=== PATIENT | male | born 1970 | race Caucasian/White ===

== ENCOUNTER 2016-10-26 07:47 | Emergency (ER) | payer SELFPAY ==
--- NOTE | 2016-10-26 10:13 | DIAGNOSTIC IMAGING REPORT ---
PROCEDURE: XR CHEST 1 VIEW INDICATION: SOB, COUGH, AND WHEEZING TECHNIQUE: Single view chest. 08:12 hours COMPARISON: None FINDINGS: Normal cardiomediastinal contour and central vessels. There is a vague asymmetric density in the medial left upper lobe adjacent to a mildly hypertrophic left first rib end. Minor scattered peribronchial thickening bilaterally. No dense consolidations, effusion, or pneumothorax. Intact osseous structures. IMPRESSION: 1. Questionable medial left upper lobe density. Further evaluation with PA and lateral chest x-ray is recommended. 2. Minor scattered peribronchial thickening may be bronchitis or reactive airways disease. 3. Findings called to the emergency room.
--- NOTE | 2016-10-26 10:42 | DIAGNOSTIC IMAGING REPORT ---
PROCEDURE: XR CHEST 2 VIEW INDICATION: COUGH TECHNIQUE: Two views. COMPARISON: Single view chest performed earlier the same day. FINDINGS: The cardiomediastinal contour and central vasculature is normal. Density in the medial left upper lobe is no longer present, likely technique change. There is persistent minor retrocardiac and bilateral perihilar peribronchial thickening. No dense consolidation, effusion, or pneumothorax. Intact osseous structures. IMPRESSION: 1. Minor peribronchial thickening suggests bronchitis. 2. No evidence of medial left upper lobe pathology with change in technique. 3. Discussed with Dr. Kahn in the emergency room.
--- NOTE | 2016-10-26 10:54 | ED CLINICAL REPORT ---
Clinical Report - Physicians/Mid Levels [facility] [address] [place] [address] 10/26/2016 7:52 Patient: GUALBERTO WATSON JR Time Seen: 0751. Arrived- By ambulance. Historian- patient and EMS personnel. CPT: ER phys charges level 4 (#022100). HISTORY OF PRESENT ILLNESS Chief Complaint: WHEEZING. This started past 2 - 3 weeks and is still present and worsening. It was abrupt in onset and has been constant and waxing/waning but is not gone now. The dyspnea is described as severe. He has had dyspnea at rest. The patient has had a cough. No chest pain or discomfort. See nurses notes for current asthma threapy. Does not take asthma medication. (states he was taking an abx that started with a "D". states he started feeling a little better so stopped. reports getting worse over the past few days. reports no known hx of COPD or wheezing.). Similar symptoms previously: Once. Recent medical care: The patient was seen recently in a clinic. REVIEW OF SYSTEMS No fever, palpitations, nausea, abdominal pain or diarrhea. No difficulty with urination, skin rash or vomiting. Denies current . All systems otherwise negative, except as recorded above. PAST HISTORY See nurses notes. Additional Surgeries: no known surgeries. Medications: Albuterol Sulfate Inhalation 2 puffs, PRN. Doxycycline Monohydrate Oral (Capsule 100 mg) 1 capsule, 2 x daily (this was a friend's antibiotic and he was taking it intermittently). PredniSONE Oral (Weaning course). Allergies: No Known Drug Allergy. SOCIAL HISTORY Smoker- current status unknown. 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 No alcohol use. No recent travel. Is a local resident. ADDITIONAL NOTES The nursing notes have been reviewed. PHYSICAL EXAM Vital Signs: 10/26/2016 07:50 BP: 126/94. HR: 76. RR: 24. O2 saturation: 100%. Temp: 98.5 F. Pain level now: 0/10. Oxygen saturation normal. Appearance: Alert. Patient in mild distress. (non-toxic). Eyes: Pupils equal, round and reactive to light. Eyes normal inspection. ENT: Ears normal. Nose normal. Pharynx normal. Uvula midline. Neck: Normal inspection. Neck supple. CVS: Normal heart rate and rhythm. Heart sounds normal. Pulses normal. Respiratory: No respiratory distress. Respiratory distress. Moderate bilateral wheezes diffusely. Breath sounds normal. No stridor, rales or rhonchi. Abdomen: Soft and nontender. No organomegaly. Skin: Skin warm and dry. Normal skin color. No rash. Normal skin turgor. Extremities: Extremities exhibit normal ROM. No lower extremity edema. Neuro: Oriented X 3. No motor deficit. No sensory deficit. LABS, X-RAYS, AND EKG EKG: Normal sinus rhythm. Normal P waves. Normal [place]. Normal QRS complex. Normal axis. Normal ST and T waves. The study has been interpreted contemporaneously. The study has been independently viewed by me. The EKG appears to be a good tracing. Laboratory Tests: CBC w Diff: (SHANELL: 10/26/2016 08:20) ( [facility] 10/26/2016 08:39) Final results Test Result Flag Units (Reference) WHITE BLOOD COUNT 7.4 K/uL (4.5-11.5) RED BLOOD COUNT 5.06 M/uL (4.50-5.90) HEMOGLOBIN 14.9 gm/dL (13.5-17.5) HEMATOCRIT 44.1 % (41.0-53.0) MEAN CELL VOLUME 87 fL (80-100) MEAN CORPUSCULAR HGB 30 pg (26-34) MEAN CORPUSCULAR HGB CONC 34 g/dL (31-37) RED CELL DISTRIBUTION WIDTH 13.5 % (11.6-14.8) PLATELET COUNT 280 K/uL (150-400) NEUTROPHIL % 55.0 % (50-75) LYMPH % 24.6 L % (25-40) MONO % 5.1 % (3-14) EOSINOPHIL % 14.9 H % (0-4) BASOPHIL % 0.4 % (0-2) BMP: (SHANELL: 10/26/2016 08:20) ( [facility] 10/26/2016 08:53) Final results Test Result Flag Units (Reference) GLUCOSE 103 mg/dL (70-110) BUN 16 mg/dL (7-18) CREATININE 0.9 mg/dL (0.6-1.3) Estimated GFR >60 mL/min Estimated GFR- >60 mL/min Note: Persistent reduction over 3 months in eGFR<60 mL/min/1.73 m2 defines CKD. Patients with eGFR values>=60 mL/min/1.73 m2 may also have CKD if evidence ofpersistent proteinuria. Additional information may be foundat www.kidney.org. SODIUM 141 mmol/L (136-145) POTASSIUM 4.2 mmol/L (3.5-5.1) CHLORIDE 104 mmol/L (98-107) CARBON DIOXIDE 29 mmol/L (21-32) CALCIUM 8.5 mg/dL (8.5-10.1) . PROGRESS AND PROCEDURES Course of Care: 10:52 10/26/16. Wheezing resolved. Has no PCP. Patient is stable. The patient's symptoms are now gone. Physical exam findings are improved. Patient/family counseled. Disposition: Discharged. Condition: stable and improved. CLINICAL IMPRESSION Acute bronchospasm Acute bacterial bronchitis. INSTRUCTIONS No strenuous activity. Drink plenty of fluids. Do not smoke. Your Current Medications: CONTINUE TAKING THE FOLLOWING MEDICATIONS: Albuterol Sulfate Inhalation : 2 puffs PRN. Doxycycline Monohydrate Oral : Capsule 100 mg, 1 capsule 2 x daily, this was a friend's antibiotic and he was taking it intermittently. PredniSONE Oral : Weaning course. Prescription Medications: Albuterol HFA oral inhaler: inhale 2 puffs via spacer every 4 hours as needed for wheezing or difficulty breathing, until symptoms improve. Dispense one (1) unit. No refill. Prednisone 20 mg: take 3 orally every day for 5 days. Dispense fifteen (15). No refills. Doxycycline 100 mg: Take 1 capsule orally every 12 hours for 10 days. No refill. Understanding of the discharge instructions verbalized by patient. Follow-up with: [facility], , , [address], [facility], [id number] Follow up in one week. Call for an appointment. (Electronically signed by Delbert Kahn MD 10/26/2016 13:52)
--- NOTE | 2016-10-26 10:54 | ED CLINICAL REPORT ---
Clinical Report - Physicians/Mid Levels [facility] [address] [place] [address] 10/26/2016 7:52 Patient: GUALBERTO WATSON JR Time Seen: 0751. Arrived- By ambulance. Historian- patient and EMS personnel. CPT: ER phys charges level 4 (#[id number]). HISTORY OF PRESENT ILLNESS Chief Complaint: WHEEZING. This started past 2 - 3 weeks and is still present and worsening. It was abrupt in onset and has been constant and waxing/waning but is not gone now. The dyspnea is described as severe. He has had dyspnea at rest. The patient has had a cough. No chest pain or discomfort. See nurses notes for current asthma threapy. Does not take asthma medication. (states he was taking an abx that started with a "D". states he started feeling a little better so stopped. reports getting worse over the past few days. reports no known hx of COPD or wheezing.). Similar symptoms previously: Once. Recent medical care: The patient was seen recently in a clinic. REVIEW OF SYSTEMS No fever, palpitations, nausea, abdominal pain or diarrhea. No difficulty with urination, skin rash or vomiting. Denies current . All systems otherwise negative, except as recorded above. PAST HISTORY See nurses notes. Additional Surgeries: no known surgeries. Medications: Albuterol Sulfate Inhalation 2 puffs, PRN. Doxycycline Monohydrate Oral (Capsule 100 mg) 1 capsule, 2 x daily (this was a friend's antibiotic and he was taking it intermittently). PredniSONE Oral (Weaning course). Allergies: No Known Drug Allergy. SOCIAL HISTORY Smoker- current status unknown. 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 No alcohol use. No recent travel. Is a local resident. ADDITIONAL NOTES The nursing notes have been reviewed. PHYSICAL EXAM Vital Signs: 10/26/2016 07:50 BP: 126/94. HR: 76. RR: 24. O2 saturation: 100%. Temp: 98.5 F. Pain level now: 0/10. Oxygen saturation normal. Appearance: Alert. Patient in mild distress. (non-toxic). Eyes: Pupils equal, round and reactive to light. Eyes normal inspection. ENT: Ears normal. Nose normal. Pharynx normal. Uvula midline. Neck: Normal inspection. Neck supple. CVS: Normal heart rate and rhythm. Heart sounds normal. Pulses normal. Respiratory: No respiratory distress. Respiratory distress. Moderate bilateral wheezes diffusely. Breath sounds normal. No stridor, rales or rhonchi. Abdomen: Soft and nontender. No organomegaly. Skin: Skin warm and dry. Normal skin color. No rash. Normal skin turgor. Extremities: Extremities exhibit normal ROM. No lower extremity edema. Neuro: Oriented X 3. No motor deficit. No sensory deficit. LABS, X-RAYS, AND EKG EKG: Normal sinus rhythm. Normal P waves. Normal [place]. Normal QRS complex. Normal axis. Normal ST and T waves. The study has been interpreted contemporaneously. The study has been independently viewed by me. The EKG appears to be a good tracing. Laboratory Tests: CBC w Diff: (SHANELL: 10/26/2016 08:20) ( [facility] 10/26/2016 08:39) Final results Test Result Flag Units (Reference) WHITE BLOOD COUNT 7.4 K/uL (4.5-11.5) RED BLOOD COUNT 5.06 M/uL (4.50-5.90) HEMOGLOBIN 14.9 gm/dL (13.5-17.5) HEMATOCRIT 44.1 % (41.0-53.0) MEAN CELL VOLUME 87 fL (80-100) MEAN CORPUSCULAR HGB 30 pg (26-34) MEAN CORPUSCULAR HGB CONC 34 g/dL (31-37) RED CELL DISTRIBUTION WIDTH 13.5 % (11.6-14.8) PLATELET COUNT 280 K/uL (150-400) NEUTROPHIL % 55.0 % (50-75) LYMPH % 24.6 L % (25-40) MONO % 5.1 % (3-14) EOSINOPHIL % 14.9 H % (0-4) BASOPHIL % 0.4 % (0-2) BMP: (SHANELL: 10/26/2016 08:20) ( [facility] 10/26/2016 08:53) Final results Test Result Flag Units (Reference) GLUCOSE 103 mg/dL (70-110) BUN 16 mg/dL (7-18) CREATININE 0.9 mg/dL (0.6-1.3) Estimated GFR >60 mL/min Estimated GFR- >60 mL/min Note: Persistent reduction over 3 months in eGFR<60 mL/min/1.73 m2 defines CKD. Patients with eGFR values>=60 mL/min/1.73 m2 may also have CKD if evidence ofpersistent proteinuria. Additional information may be foundat www.kidney.org. SODIUM 141 mmol/L (136-145) POTASSIUM 4.2 mmol/L (3.5-5.1) CHLORIDE 104 mmol/L (98-107) CARBON DIOXIDE 29 mmol/L (21-32) CALCIUM 8.5 mg/dL (8.5-10.1) . PROGRESS AND PROCEDURES Course of Care: 10:52 10/26/16. Wheezing resolved. Has no PCP. Patient is stable. The patient's symptoms are now gone. Physical exam findings are improved. Patient/family counseled. Disposition: Discharged. Condition: stable and improved. CLINICAL IMPRESSION Acute bronchospasm Acute bacterial bronchitis. INSTRUCTIONS No strenuous activity. Drink plenty of fluids. Do not smoke. Your Current Medications: CONTINUE TAKING THE FOLLOWING MEDICATIONS: Albuterol Sulfate Inhalation : 2 puffs PRN. Doxycycline Monohydrate Oral : Capsule 100 mg, 1 capsule 2 x daily, this was a friend's antibiotic and he was taking it intermittently. PredniSONE Oral : Weaning course. Prescription Medications: Albuterol HFA oral inhaler: inhale 2 puffs via spacer every 4 hours as needed for wheezing or difficulty breathing, until symptoms improve. Dispense one (1) unit. No refill. Prednisone 20 mg: take 3 orally every day for 5 days. Dispense fifteen (15). No refills. Doxycycline 100 mg: Take 1 capsule orally every 12 hours for 10 days. No refill. Understanding of the discharge instructions verbalized by patient. Follow-up with: [facility], , , [address], [facility], [id number] Follow up in one week. Call for an appointment. (Electronically signed by Delbert Kahn MD 10/26/2016 13:52)
--- NOTE | 2016-10-26 10:54 | ED NURSING NOTES ---
Clinical Report - Nurses [facility] [address] [place] [address] 10/26/2016 7:52 Patient: GUALBERTO WATSON JR TRIAGE Triage time 07:45 Oct 26 2016. Acuity: LEVEL 3. Chief Complaint: SHORTNESS OF BREATH, DIFFICULTY BREATHING, "ASTHMA ATTACK" and WHEEZING. Alert. JANICE COMA SCORE: [place] Coma Scale: 15- eyes open spontaneously (4); best verbal response- oriented x 4 (5); best motor response- obeys commands (6). --08:07 Cody Silva R.N. 07:50 10/26/16. BP: 126/94. HR: 76. RR: 24. O2 saturation: 100% on room air. Temp: 98.5 F. Pain level now: 0/10. --08:07 Cody Silva R.N. Weight: 89.8 kg measured. Height/Length: 68 inches Per Patient. BMI: 30.1. --07:57 Cody Silva R.N. Medications Albuterol Sulfate Inhalation 2 puffs, PRN. Doxycycline Monohydrate Oral (Capsule 100 mg) 1 capsule, 2 x daily (this was a friend's antibiotic and he was taking it intermittently). PredniSONE Oral (Weaning course). --08:03 Cody Silva R.N. Medication/allergy information source: the patient. --08:07 Cody Silva R.N. Allergies No Known Drug Allergy. --08:05 Cody Silva R.N. History Arrived by EMS. Historian: patient. Unaccompanied. Primary physician ([facility]). ( Respiratory Distress/Asthma Exacerbation. Found outside [facility] this morning when they opened breathing hard and in apparent resp distress. Medics called.). Onset. (about 2 days ago). He has had a cough and wheezing. 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 PAST MEDICAL HX: Asthma. Immunizations: status is unknown. SURGERY HX: No history of previous surgery. SOCIAL HX: Never smoker. No alcohol use or drug use. ABUSE ASSESSMENT: No report of abuse. FALL RISK ASSESSMENT: Fall risk assessment completed. No fall risk identified. NUTRITIONAL RISK ASSESSMENT: The nutritional risk assessment revealed no deficiencies. FUNCTIONAL ASSESSMENT: Functional assessment: no impairments noted. LEARNING NEEDS ASSESSMENT: The learning needs assessment revealed no barriers. SKIN INTEGRITY ASSESSMENT: Skin integrity risk assessment completed. No skin integrity risk identified. --08:07 Cody Silva R.N. ADDITIONAL SURGERIES: no known surgeries. Interventions ID band on patient. To treatment room. --08:07 Cody Silva R.N. PHYSICAL ASSESSMENT To room via stretcher. GENERAL / NEURO / PSYCH: Alert. Oriented X 4. HEENT: Mucous membranes are pink. RESPIRATORY: Mild respiratory distress. Expiratory bilateral wheezes diffusely. CVS: Normal sinus rhythm noted. Capillary refill less than 2 seconds. GI / : Abdomen soft and nontender. SKIN: Skin is warm and dry. Normal skin turgor. --08:09 Cody Silva R.N. NURSING PROGRESS NOTES technology teacher, pulse oximeter and NIBP monitor placed on patient; senior vice president- Lead II and V1; monitor alarms on. Patient gowned. Patient identifiers checked. Call light placed in reach. Side rails up x 2. Bed placed in lowest position. Brakes of bed on. Patient ready for evaluation- chart flagged and ED physician notified. --08:10 Cody Silva R.N. 08:11 10/26/2016 Site #1 started prior to arrival by EMS via IV in the left antecubital space with an 18g angiocath, with aseptic technique and good blood return. Blood drawn: rainbow set. Labeled in the presence of the patient and sent to the lab (Field start IV by EMS, blood specimen drawn from IV site by RN in ED.). --08:26 Cody Silva R.N. 08:11 10/26/2016 SOLU-MEDROL (MethylPREDNISolone Sodium Succ) IVP 125 mg given over 2 minute(s) via site #1. Allergies verified and confirmed 5 rights. IV patency established. IV site checked: no pain, redness, or swelling. IV flushed thoroughly pre- and post-medication administration. IVP given by RN. --08:26 Cody Silva R.N. EKG time: (0801). EKG was performed by a tech and shown to the ED physician. ( performed by Zack Jacobs, per MD PRIEST). --08:42 Seth Moralez, ALICIA Tech1 08:59 10/26/2016 Albuterol Neb TX Nebulizer 3 unit dose given. Given by the respiratory therapist. Allergies verified and confirmed 5 rights. Cayetano Weinstein --08:59 Cayetano Weinstein 09:22 10/26/16. BP: 110/72. HR: 62. RR: 18. O2 saturation: 93% on room air. Pain level now: 0/10. --09:27 Cody Silva R.N. 09:19 10/26/2016 Duoneb (Ipratropium-Albuterol) Neb TX Nebulizer 1 unit dose given. Given by the respiratory therapist. Allergies verified and confirmed 5 rights. --09:35 Cody Silva R.N. 10:15 10/26/16. BP: 112/73. HR: 65. RR: 18. O2 saturation: 94% on room air. Pain level now: 0/10. --11:34 Cody Silva R.N. 11:00 10/26/2016 Site #1 removed upon discharge. Catheter intact. Manual pressure, bandaid and bandage applied. --11:37 Cody Silva R.N. DISPOSITION / DISCHARGE 11:00 10/26/16. BP: 119/76. HR: 68 (regular and normal rate). RR: 20. O2 saturation: 95% on room air. Temp: 98.4 F (oral). Pain level now: 0/10. --11:27 Cody Silva R.N. Departure time: 1105. --11:27 Cody Silva R.N. 11:05. Condition at departure: improved. No learning barriers present. Discharge instructions provided and reviewed with the patient. Reviewed medication(s) dosing and course information (prescription given to pt). Reviewed referral to family practice for followup. Patient verbalized understanding. Written instructions provided in Upper Sorbian. The patient was discharged by the physician. He was discharged home and unaccompanied at time of discharge. He left the Emergency Department ambulatory and via bus. --11:29 Cody Silva R.N. Locked/Released at 10/26/2016 11:40 by Cody Silva R.N.
--- NOTE | 2016-10-26 10:54 | ED ORDER SUMMARY ---
..... Patient: GUALBERTO WATSON JR OrderSheet [facility] VisitID: [id number] [address] [place] [address] 46y, M Registration Date/Time: 10/26/2016 ORDER SHEET Weight: 89.8 kg (measured) Allergies: No Known Drug Allergy GENERAL ORDERS: Chest 1V Urgent (07:56 10/26/2016 Navya Ocampo) (Ack 7:58 IJurca ER Tech1) (8:10 omanelli R.N.) Manager Food (Continuous) (Respiratory Distress) (07:56 10/26/2016 Navya Ocampo) (Ack 7:58 IJurca ER Tech1) (8:10 Nevin R.N.) CBC w Diff Urgent (07:56 10/26/2016 Navya Ocampo) (Ack 7:58 NAHIDurca ER Tech1) (8:24 Nevin R.N.) BMP Urgent (07:56 10/26/2016 Navya Ocampo) (Ack 7:58 IJurca ER Tech1) (8:24 Nevin R.N.) Pulse oximeter (07:56 10/26/2016 Navya Ocampo) (Ack 7:58 IJurca ER Tech1) (8:10 omanelli R.N.) Chest 2V Urgent (10:13 10/26/2016 Ashlee SALAS) (Ack 10:16 IJurca ER Tech1) (10:29 Nevin R.N.) MEDICATION ORDERS: DuoNeb Neb Tx 1 unit dose (NOW) (07:56 10/26/2016 Navya Ocampo) (9:35 Nevin R.N.) Albuterol Neb Tx 3 unit doses (NOW) (08:50 10/26/2016 Navya Ocampo) (8:59 JZiglar) IV FLUIDS: Solu-MEDROL IV 125 mg (NOW) (07:57 10/26/2016 Navya Ocampo) (8:26 Nevin R.N.) ORDER SHEET NOTES: [Electronically signed by Cody Silva R.N. (11:40 10/26/2016)] [Electronically signed by Delbert Kahn MD (13:52 10/26/2016)] [Electronically locked/signed by Cody Silva R.N. (11:40 10/26/2016)]
--- NOTE | 2016-10-26 10:54 | ED ORDER SUMMARY ---
..... Patient: GUALBERTO WATSON JR OrderSheet [facility] VisitID: [id number] [address] [place] [address] 46y, M Registration Date/Time: 10/26/2016 ORDER SHEET Weight: 89.8 kg (measured) Allergies: No Known Drug Allergy GENERAL ORDERS: Chest 1V Urgent (07:56 10/26/2016 Navya Ocampo) (Ack 7:58 IJurca ER Tech1) (8:10 omanelli R.N.) Homicide Investigator (Continuous) (Respiratory Distress) (07:56 10/26/2016 Navya Ocampo) (Ack 7:58 IJurca ER Tech1) (8:10 Nevin R.N.) CBC w Diff Urgent (07:56 10/26/2016 Navya Ocampo) (Ack 7:58 NAHIDurca ER Tech1) (8:24 Nevin R.N.) BMP Urgent (07:56 10/26/2016 Navya Ocampo) (Ack 7:58 IJurca ER Tech1) (8:24 Nevin R.N.) Pulse oximeter (07:56 10/26/2016 Navya Ocampo) (Ack 7:58 IJurca ER Tech1) (8:10 omanelli R.N.) Chest 2V Urgent (10:13 10/26/2016 Ashlee SALAS) (Ack 10:16 IJurca ER Tech1) (10:29 Nevin R.N.) MEDICATION ORDERS: DuoNeb Neb Tx 1 unit dose (NOW) (07:56 10/26/2016 Navya Ocampo) (9:35 Nevin R.N.) Albuterol Neb Tx 3 unit doses (NOW) (08:50 10/26/2016 Navya Ocampo) (8:59 JZiglar) IV FLUIDS: Solu-MEDROL IV 125 mg (NOW) (07:57 10/26/2016 Navya Ocampo) (8:26 Nevin R.N.) ORDER SHEET NOTES: [Electronically signed by Cody Silva R.N. (11:40 10/26/2016)] [Electronically signed by Delbert Kahn MD (13:52 10/26/2016)] [Electronically locked/signed by Cody Silva R.N. (11:40 10/26/2016)]
--- NOTE | 2016-10-26 10:54 | ED NURSING NOTES ---
Clinical Report - [facility] [address] [place] [address] 10/26/2016 7:52 Patient: GUALBERTO WATSON JR TRIAGE Triage time 07:45 Oct 26 2016. Acuity: LEVEL 3. Chief Complaint: SHORTNESS OF BREATH, DIFFICULTY BREATHING, "ASTHMA ATTACK" and WHEEZING. Alert. JANICE COMA SCORE: [place] Coma Scale: 15- eyes open spontaneously (4); best verbal response- oriented x 4 (5); best motor response- obeys commands (6). --08:07 Cody Silva R.N. 07:50 10/26/16. BP: 126/94. HR: 76. RR: 24. O2 saturation: 100% on room air. Temp: 98.5 F. Pain level now: 0/10. --08:07 Cody Silva R.N. Weight: 89.8 kg measured. Height/Length: 68 inches Per Patient. BMI: 30.1. --07:57 Cody Silva R.N. Medications Albuterol Sulfate Inhalation 2 puffs, PRN. Doxycycline Monohydrate Oral (Capsule 100 mg) 1 capsule, 2 x daily (this was a friend's antibiotic and he was taking it intermittently). PredniSONE Oral (Weaning course). --08:03 Cody Silva R.N. Medication/allergy information source: the patient. --08:07 Cody Silva R.N. Allergies No Known Drug Allergy. --08:05 Cody Silva R.N. History Arrived by EMS. Historian: patient. Unaccompanied. Primary physician ([facility]). ( Respiratory Distress/Asthma Exacerbation. Found outside [facility] this morning when they opened breathing hard and in apparent resp distress. Medics called.). Onset. (about 2 days ago). He has had a cough and wheezing. 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 PAST MEDICAL HX: Asthma. Immunizations: status is unknown. SURGERY HX: No history of previous surgery. SOCIAL HX: Never smoker. No alcohol use or drug use. ABUSE ASSESSMENT: No report of abuse. FALL RISK ASSESSMENT: Fall risk assessment completed. No fall risk identified. NUTRITIONAL RISK ASSESSMENT: The nutritional risk assessment revealed no deficiencies. FUNCTIONAL ASSESSMENT: Functional assessment: no impairments noted. LEARNING NEEDS ASSESSMENT: The learning needs assessment revealed no barriers. SKIN INTEGRITY ASSESSMENT: Skin integrity risk assessment completed. No skin integrity risk identified. --08:07 Cody Silva R.N. ADDITIONAL SURGERIES: no known surgeries. Interventions ID band on patient. To treatment room. --08:07 Cody Silva R.N. PHYSICAL ASSESSMENT To room via stretcher. GENERAL / NEURO / PSYCH: Alert. Oriented X 4. HEENT: Mucous membranes are pink. RESPIRATORY: Mild respiratory distress. Expiratory bilateral wheezes diffusely. CVS: Normal sinus rhythm noted. Capillary refill less than 2 seconds. GI / : Abdomen soft and nontender. SKIN: Skin is warm and dry. Normal skin turgor. --08:09 Cody Silva R.N. NURSING PROGRESS NOTES cardiac monitor technician, pulse oximeter and NIBP monitor placed on patient; cardiac rehabilitation program director- Lead II and V1; monitor alarms on. Patient gowned. Patient identifiers checked. Call light placed in reach. Side rails up x 2. Bed placed in lowest position. Brakes of bed on. Patient ready for evaluation- chart flagged and ED physician notified. --08:10 Cody Silva R.N. 08:11 10/26/2016 Site #1 started prior to arrival by EMS via IV in the left antecubital space with an 18g angiocath, with aseptic technique and good blood return. Blood drawn: rainbow set. Labeled in the presence of the patient and sent to the lab (Field start IV by EMS, blood specimen drawn from IV site by RN in ED.). --08:26 Cody Silva R.N. 08:11 10/26/2016 SOLU-MEDROL (MethylPREDNISolone Sodium Succ) IVP 125 mg given over 2 minute(s) via site #1. Allergies verified and confirmed 5 rights. IV patency established. IV site checked: no pain, redness, or swelling. IV flushed thoroughly pre- and post-medication administration. IVP given by RN. --08:26 Cody Silva R.N. EKG time: (0801). EKG was performed by a tech and shown to the ED physician. ( performed by Zack Jacobs, per MD PRIEST). --08:42 Seth Moralez, ALICIA Tech1 08:59 10/26/2016 Albuterol Neb TX Nebulizer 3 unit dose given. Given by the respiratory therapist. Allergies verified and confirmed 5 rights. Cayetano Weinstein --08:59 Cayetano Weinstein 09:22 10/26/16. BP: 110/72. HR: 62. RR: 18. O2 saturation: 93% on room air. Pain level now: 0/10. --09:27 Cody Sivla R.N. 09:19 10/26/2016 Duoneb (Ipratropium-Albuterol) Neb TX Nebulizer 1 unit dose given. Given by the respiratory therapist. Allergies verified and confirmed 5 rights. --09:35 Cody Silva R.N. 10:15 10/26/16. BP: 112/73. HR: 65. RR: 18. O2 saturation: 94% on room air. Pain level now: 0/10. --11:34 Cody Silva R.N. 11:00 10/26/2016 Site #1 removed upon discharge. Catheter intact. Manual pressure, bandaid and bandage applied. --11:37 Cody Silva R.N. DISPOSITION / DISCHARGE 11:00 10/26/16. BP: 119/76. HR: 68 (regular and normal rate). RR: 20. O2 saturation: 95% on room air. Temp: 98.4 F (oral). Pain level now: 0/10. --11:27 oCdy Silva R.N. Departure time: 1105. --11:27 Cody Silva R.N. 11:05. Condition at departure: improved. No learning barriers present. Discharge instructions provided and reviewed with the patient. Reviewed medication(s) dosing and course information (prescription given to pt). Reviewed referral to family practice for followup. Patient verbalized understanding. Written instructions provided in Icelandic. The patient was discharged by the physician. He was discharged home and unaccompanied at time of discharge. He left the Emergency Department ambulatory and via bus. --11:29 Cody Silva R.N. Locked/Released at 10/26/2016 11:40 by Cody Silva R.N.
--- NOTE | 2016-10-26 13:52 | ED MED RECONCILIATION SUMMARY ---
Patient: GUALBERTO WATSON JR Medication Reconciliation Report [facility] VisitID: [id number] [address] [place] [address] 46y, M Registration Date/Time: 10/26/2016 Weight: 89.8 kg Height/Length: 68 in. BMI: 30.1 ALLERGIES: No Known Drug Allergy The patient's Home Medications are listed below: CONTINUE TAKING THE FOLLOWING MEDICATIONS: Albuterol Sulfate Inhalation 2 puffs, PRN Doxycycline Monohydrate Oral (100 mg) 1 capsule, 2 x daily, this was a friend's antibiotic and he was taking it intermittently PredniSONE Oral, Weaning course The source(s) of the original Home Medication information: patient The following Medications were given to the patient in the Emergency Department: SOLU-MEDROL [IVP] IVP 125 mg, administered: 10/26/2016 8:11:00 AM Albuterol [Neb Tx] Neb TX 3 unit dose, administered: 10/26/2016 8:59:00 AM Duoneb [Neb Tx] Neb TX 1 unit dose, administered: 10/26/2016 9:19:00 AM The following Medications were prescribed to the patient: Albuterol HFA oral inhaler: inhale 2 puffs via spacer every 4 hours as needed for wheezing or difficulty breathing, until symptoms improve. Dispense one (1) unit. No refill. -- Delbert Kahn MD Prednisone 20 mg: take 3 orally every day for 5 days. Dispense fifteen (15). No refills. -- Delbert Kahn MD Doxycycline 100 mg: Take 1 capsule orally every 12 hours for 10 days. No refill. -- Delbert Kahn MD
--- NOTE | 2016-10-26 13:52 | ED MED RECONCILIATION SUMMARY ---
Patient: GUALBERTO WATSON JR Medication Reconciliation Report [facility] VisitID: [id number] [address] [place] [address] 46y, M Registration Date/Time: 10/26/2016 Weight: 89.8 kg Height/Length: 68 in. BMI: 30.1 ALLERGIES: No Known Drug Allergy The patient's Home Medications are listed below: CONTINUE TAKING THE FOLLOWING MEDICATIONS: Albuterol Sulfate Inhalation 2 puffs, PRN Doxycycline Monohydrate Oral (100 mg) 1 capsule, 2 x daily, this was a friend's antibiotic and he was taking it intermittently PredniSONE Oral, Weaning course The source(s) of the original Home Medication information: patient The following Medications were given to the patient in the Emergency Department: SOLU-MEDROL [IVP] IVP 125 mg, administered: 10/26/2016 8:11:00 AM Albuterol [Neb Tx] Neb TX 3 unit dose, administered: 10/26/2016 8:59:00 AM Duoneb [Neb Tx] Neb TX 1 unit dose, administered: 10/26/2016 9:19:00 AM The following Medications were prescribed to the patient: Albuterol HFA oral inhaler: inhale 2 puffs via spacer every 4 hours as needed for wheezing or difficulty breathing, until symptoms improve. Dispense one (1) unit. No refill. -- Delbert Kahn MD Prednisone 20 mg: take 3 orally every day for 5 days. Dispense fifteen (15). No refills. -- Delbert Kahn MD Doxycycline 100 mg: Take 1 capsule orally every 12 hours for 10 days. No refill. -- Delbert Kahn MD
--- NOTE | 2016-10-26 13:52 | ED DISCHARGE INSTRUCTIONS ---
Patient: GUALBERTO WATSON JR General Instructions [facility] VisitID: [id number] [address] [place] [place] [address] 46y, M Registration Date/Time: 10/26/2016 Acute bronchospasm Acute bacterial bronchitis. INSTRUCTIONS No strenuous activity. Drink plenty of fluids. Do not smoke. Your Current Medications: CONTINUE TAKING THE FOLLOWING MEDICATIONS: Albuterol Sulfate Inhalation : 2 puffs PRN. Doxycycline Monohydrate Oral : Capsule 100 mg, 1 capsule 2 x daily, this was a friend's antibiotic and he was taking it intermittently. PredniSONE Oral : Weaning course. Prescription Medications: Albuterol HFA oral inhaler: inhale 2 puffs via spacer every 4 hours as needed for wheezing or difficulty breathing, until symptoms improve. Dispense one (1) unit. No refill. Prednisone 20 mg: take 3 orally every day for 5 days. Dispense fifteen (15). No refills. Doxycycline 100 mg: Take 1 capsule orally every 12 hours for 10 days. No refill. Understanding of the discharge instructions verbalized by patient. Follow-up with: [facility], , , [address], [facility], [id number] Follow up in one week. Call for an appointment. ADDITIONAL INFORMATION Bronchospasm (Adult) Bronchospasm occurs when the airways (bronchial tubes) go into spasm and contract. This makes it hard to breathe and causes wheezing (a high-pitched whistling sound). Bronchospasm can also cause frequent coughing without the wheezing sound. Bronchospasm is due to irritation, inflammation or allergic reaction of the airways. People with asthma get bronchospasm. However, not everyone with bronchospasm has asthma. Being exposed to harmful fumes, a recent case of bronchitis, or a flare-up of chronic emphysema (COPD) may cause the airways to spasm. An episode of bronchospasm may last 7-14 days. Medicine may be prescribed to relax the airways and prevent wheezing. Antibiotics will be prescribed only if your doctor thinks there is a bacterial infection. Antibiotics do not help a viral infection. Home Care: Drink lots of water or other fluids (at least 10 glasses a day) during an attack. This will loosen lung secretions and make it easier to breathe. If you have heart or kidney disease, check with your doctor before you drink extra amounts of fluids. Take prescribed medicine exactly at the times advised. If you have a hand-held inhaler or aerosol breathing medicine, do not use it more than once every four hours, unless told to do so. If prescribed an antibiotic or prednisone, take all of the medicine even if you are feeling better after a few days. Do not smoke. Avoid being exposed to the smoke of others. If you were given an inhaler, use it exactly as directed. If you need to use it more often than prescribed, your condition may be getting worse. Contact your doctor or this facility. Follow Up With Your Doctor, Or As Directed. [ NOTE: If you are age 65 or older, or if you have chronic asthma or COPD, we recommend a PNEUMOCOCCAL VACCINATION every five years and a yearly INFLUENZA VACCINATION (FLU-SHOT) every . Ask your doctor about this.] Get Prompt Medical Attention If Any Of The Following Occur: Increased wheezing or shortness of breath Need to use your inhalers more often than usual without relief Fever of 100.4F (38C) or higher, or as directed by your healthcare provider Coughing up lots of dark-colored or bloody sputum (mucus) Chest pain with each breath You do not start to improve within 24 hours Bronchitis With Wheezing (Viral Or Bacterial: Adult) Bronchitis is an infection of the air passages. It often occurs during the common cold and is usually caused by a virus. Symptoms include cough with mucus (phlegm) and low-grade fever. If there is a lot of inflammation, air flow is restricted. The air passages may also go into spasm, especially if you are an asthmatic. This causes wheezing and difficulty breathing even in persons who do not have asthma. Bronchitis usually lasts 7-14 days. The wheezing should improve with treatment during the first week. An inhaler is often prescribed to relax the air passages and stop wheezing. Antibiotics will be prescribed if your doctor thinks there is also a secondary bacterial infection. Home Care: If symptoms are severe, rest at home for the first 2-3 days. When resuming activity, don't let yourself become overly tired. Do not smoke and avoid exposure to the smoke of others. You may use acetaminophen (Tylenol) or ibuprofen (Motrin, Advil) to control fever, unless another medicine was prescribed. [NOTE: If you have chronic liver or kidney disease or ever had a stomach ulcer or GI bleeding, talk with your doctor before using these medicines.] (Aspirin should never be used in anyone under 18 years of age who is ill with a fever. It may cause severe liver damage.) Your appetite may be poor so a light diet is fine. Avoid dehydration by drinking 6-8 glasses of fluids per day (water, soft, drinks, juices, tea, soup, etc.). Extra fluids will help loosen secretions in the lungs. Akrl-heb-ydjgewz cough medicines that containdextromethorphan(such as Robitussin DM) and decongestants (Actifed or Sudafed) may help relieve cough and congestion. [NOTE: Do not use decongestants if you have high blood pressure.] If you were given an inhaler, use it exactly as directed. If you need to use it more often than prescribed, your condition may be worsening. Contact your doctor or this facility. If prescribed, finish all antibiotic medicine, even if you are feeling better after only a few days. Follow Up With Your Doctor Or As Directed If You Are Not Starting To Feel Better After Three Days. [NOTE: If you are age 65 or older, or if you have chronic asthma or COPD, we recommend a pneumococcal vaccination every five years and a yearly influenza vaccination (flu shot) every . Ask your doctor about this. If you had an x-ray or EKG (electrocardiogram), it will be reviewed by a specialist. You will be notified of any new findings that may affect your care.] Get Prompt Medical Attention If Any Of The Following Occur: Increased wheezing, shortness of breath or pain with breathing Fever of 100.4F (38C) oral or higher, not better with fever medication Coughing up blood or increasing amounts of colored sputum Weakness, drowsiness, headache, facial pain, ear pain or a stiff neck Lower leg swelling, tenderness, redness or pain Bronchitis (Adult: Abx Tx) BRONCHITIS is an infection of the air passages (bronchial tubes). It often occurs during the common cold. Symptoms include cough with mucus (phlegm) and low-grade fever. Bronchitis usually lasts 7-14 days. Mild cases can be treated with simple home remedies. More severe infection is treated with an antibiotic. Home Care: If symptoms are severe, rest at home for the first 2-3 days. When you resume activity, don't let yourself get too tired. Do not smoke. Avoid being exposed to the smoke of others. You may use acetaminophen (Tylenol) or ibuprofen (Motrin, Advil) to control fever or pain, unless another medicine was prescribed for this. [NOTE: If you have chronic liver or kidney disease or ever had a stomach ulcer or GI bleeding, talk with your doctor before using these medicines.] Your appetite may be poor, so a light diet is fine. Avoid dehydration by drinking 6-8 glasses of fluids per day (water, soft, drinks, juices, tea, soup, etc.). Extra fluids will help loosen secretions in the lungs. Ngxq-mut-nwswlhf cough medicines that containdextromethorphan(such as Robitussin DM) and decongestants (Actifed or Sudafed) may help relieve cough and congestion. [NOTE: Do not use decongestants if you have high blood pressure.] Finish all antibiotic medicine, even if you are feeling better after only a few days. Follow Up with your doctor or as directed if you dont start to feel better after three days. [NOTE: If you are age 65 or older, or if you have chronic asthma or COPD, we recommend a PNEUMOCOCCAL VACCINATION every five years and a yearly INFLUENZAVACCINATION (FLU-SHOT) every . Ask your doctor about this. If you had an X-ray, a radiologist will review it. You will be notified of any new findings that may affect your care.] Get Prompt Medical Attention if any of the following occur: Fever over 100.4F (38.0C) for more than three days Trouble breathing, wheezing or pain with breathing Coughing up blood or increased amounts of colored sputum Weakness, drowsiness, headache, facial pain, ear pain or a stiff neck Bronchitis With Wheezing (Viral Or Bacterial: Adult) Bronchitis is an infection of the air passages. It often occurs during the common cold and is usually caused by a virus. Symptoms include cough with mucus (phlegm) and low-grade fever. If there is a lot of inflammation, air flow is restricted. The air passages may also go into spasm, especially if you are an asthmatic. This causes wheezing and difficulty breathing even in persons who do not have asthma. Bronchitis usually lasts 7-14 days. The wheezing should improve with treatment during the first week. An inhaler is often prescribed to relax the air passages and stop wheezing. Antibiotics will be prescribed if your doctor thinks there is also a secondary bacterial infection. Home Care: If symptoms are severe, rest at home for the first 2-3 days. When resuming activity, don't let yourself become overly tired. Do not smoke and avoid exposure to the smoke of others. You may use acetaminophen (Tylenol) or ibuprofen (Motrin, Advil) to control fever, unless another medicine was prescribed. [NOTE: If you have chronic liver or kidney disease or ever had a stomach ulcer or GI bleeding, talk with your doctor before using these medicines.] (Aspirin should never be used in anyone under 18 years of age who is ill with a fever. It may cause severe liver damage.) Your appetite may be poor so a light diet is fine. Avoid dehydration by drinking 6-8 glasses of fluids per day (water, soft, drinks, juices, tea, soup, etc.). Extra fluids will help loosen secretions in the lungs. Jzei-dbb-risypfb cough medicines that containdextromethorphan(such as Robitussin DM) and decongestants (Actifed or Sudafed) may help relieve cough and congestion. [NOTE: Do not use decongestants if you have high blood pressure.] If you were given an inhaler, use it exactly as directed. If you need to use it more often than prescribed, your condition may be worsening. Contact your doctor or this facility. If prescribed, finish all antibiotic medicine, even if you are feeling better after only a few days. Follow Up With Your Doctor Or As Directed If You Are Not Starting To Feel Better After Three Days. [NOTE: If you are age 65 or older, or if you have chronic asthma or COPD, we recommend a pneumococcal vaccination every five years and a yearly influenza vaccination (flu shot) every . Ask your doctor about this. If you had an x-ray or EKG (electrocardiogram), it will be reviewed by a specialist. You will be notified of any new findings that may affect your care.] Get Prompt Medical Attention If Any Of The Following Occur: Increased wheezing, shortness of breath or pain with breathing Fever of 100.4F (38C) oral or higher, not better with fever medication Coughing up blood or increasing amounts of colored sputum Weakness, drowsiness, headache, facial pain, ear pain or a stiff neck Lower leg swelling, tenderness, redness or pain Albuterol Sulfate Pressurized inhalation, suspension What is this medicine? ALBUTEROL (al BYOO ter ole) is a bronchodilator. It helps open up the airways in your lungs to make it easier to breathe. This medicine is used to treat and to prevent bronchospasm. How should I use this medicine? This medicine is for inhalation through the mouth. Follow the directions on your prescription label. Take your medicine at regular intervals. Do not use more often than directed. Make sure that you are using your inhaler correctly. Ask you doctor or health care provider if you have any questions. Talk to your hog feeder regarding the use of this medicine in children. Special care may be needed. What side effects may I notice from receiving this medicine? Side effects that you should report to your doctor or health professional healthcare representative as soon as possible: allergic reactions like skin rash, itching or hives, swelling of the face, lips, or tongue breathing problems chest pain feeling faint or lightheaded, falls high blood pressure irregular heartbeat fever muscle cramps or weakness pain, tingling, numbness in the hands or feet vomiting Side effects that usually do not require medical attention (report to your doctor or health professional healthcare representative if they continue or are bothersome): cough difficulty sleeping headache nervousness or trembling stomach upset stuffy or runny nose throat irritation unusual taste What may interact with this medicine? anti-infectives like chloroquine and pentamidine caffeine cisapride diuretics medicines for colds medicines for depression or for emotional or psychotic conditions medicines for weight loss including some herbal products methadone some antibiotics like clarithromycin, erythromycin, levofloxacin, and linezolid some heart medicines steroid hormones like dexamethasone, cortisone, hydrocortisone theophylline thyroid hormones What if I miss a dose? If you miss a dose, use it as soon as you can. If it is almost time for your next dose, use only that dose. Do not use double or extra doses. Where should I keep my medicine? Keep out of the reach of children. Store at room temperature between 15 and 30 degrees C (59 and 86 degrees F). The contents are under pressure and may burst when exposed to heat or flame. Do not freeze. This medicine does not work as well if it is too cold. Throw away any unused medicine after the expiration date. Inhalers need to be thrown away after the labeled number of puffs have been used or by the expiration date; whichever comes first. Ventolin HFA should be thrown away 12 months after removing from foil pouch. Check the instructions that come with your medicine. What should I tell my health care provider before I take this medicine? They need to know if you have any of the following conditions: diabetes heart disease or irregular heartbeat high blood pressure pheochromocytoma seizures thyroid disease an unusual or allergic reaction to albuterol, levalbuterol, sulfites, other medicines, foods, dyes, or preservatives or trying to get breast-feeding What should I watch for while using this medicine? Tell your doctor or health professional healthcare representative if your symptoms do not improve. Do not use extra albuterol. If your asthma or bronchitis gets worse while you are using this medicine, call your doctor right away. If your mouth gets dry try chewing sugarless gum or sucking hard candy. Drink water as directed. You have been given the following additional information: Bronchospasm (Adult) Bronchitis With Wheezing (Adult) Bronchitis, Antiobiotic Treatment (Adult) Bronchitis With Wheezing (Adult) Albuterol Sulfate Pressurized inhalation, suspension No strenuous activity. (Electronically signed by Delbert Kahn MD 10/26/2016 13:52)
--- NOTE | 2016-10-26 13:52 | ED MAR SUMMARY ---
..... Medication Administration Record [facility] [address] [place] [address] Patient: GUALBERTO WATSON Visit ID: [id number] 46y, M Weight: 89.8 kg Height/Length: 68 in BMI: 30.1 ALLERGIES: No Known Drug Allergy Given 08:11 10/26/2016 Cody Silva, R.N. Medication Administered: SOLU-MEDROL [IVP] (METHYLPREDNISOLONE SODIUM SUCC), Dose: 125 mg IVP over 2 minute(s), Site: #1 left . Medication Ordered: Solu-MEDROL IV 125 mg (NOW). Given 08:59 10/26/2016 Cayetano Weinstein, Medication Administered: ALBUTEROL [NEB TX], Dose: 3 unit dose Nebulizer Neb TX. Medication Ordered: Albuterol Neb Tx 3 unit doses (NOW). Given 09:19 10/26/2016 Cody Silva, R.N. Medication Administered: DUONEB [NEB TX] (IPRATROPIUM-ALBUTEROL), Dose: 1 unit dose Nebulizer Neb TX. Medication Ordered: DuoNeb Neb Tx 1 unit dose (NOW).
--- NOTE | 2016-10-26 13:52 | ED MAR SUMMARY ---
..... Medication Administration Record [facility] [address] [place] [address] Patient: GUALBERTO WATSON Visit ID: [id number] 46y, M Weight: 89.8 kg Height/Length: 68 in BMI: 30.1 ALLERGIES: No Known Drug Allergy Given 08:11 10/26/2016 Cody Silva, R.N. Medication Administered: SOLU-MEDROL [IVP] (METHYLPREDNISOLONE SODIUM SUCC), Dose: 125 mg IVP over 2 minute(s), Site: #1 left . Medication Ordered: Solu-MEDROL IV 125 mg (NOW). Given 08:59 10/26/2016 Cayetano Weinstein, Medication Administered: ALBUTEROL [NEB TX], Dose: 3 unit dose Nebulizer Neb TX. Medication Ordered: Albuterol Neb Tx 3 unit doses (NOW). Given 09:19 10/26/2016 Cody Silva, R.N. Medication Administered: DUONEB [NEB TX] (IPRATROPIUM-ALBUTEROL), Dose: 1 unit dose Nebulizer Neb TX. Medication Ordered: DuoNeb Neb Tx 1 unit dose (NOW).
== END 2016-10-26 11:05 | disposition home or self-care (01) ==
LOC: ED SRH 07:47
DX: J20.8 Acute bronchitis due to other specified organisms (principal); J45.909 Unspecified asthma, uncomplicated; Z79.2 Long term (current) use of antibiotics; Z79.899 Other long term (current) drug therapy; Z79.51 Long term (current) use of inhaled steroids
CPT/HCPCS: 90047; 95059